=== PATIENT | female | born 1930 | race Hispanic/Latino ===

== ENCOUNTER 2017-03-09 08:07 | Outpatient (RCR) | payer MEDICARE ==
[~2017-03-09 08:07] MED LIST: LIDOCAINE VISC 2% SOLN 15 ML UDC ONE; LIDOCAINE/PRILOCAINE 2.5-2.5% KIT ONE
[2017-03-09] MEDS ORDERED: LIDOCAINE/PRILOCAINE 2.5-2.5% KIT ONE (14:27)
== END 2017-03-13 ==
LOC: WCC 08:07
PROVIDERS: ATTEND Family Medicine Adult Medicine
DX: S81.801A Unspecified open wound, right lower leg, initial encounter (principal); I87.2 Venous insufficiency (chronic) (peripheral); W20.8XXA Other cause of strike by thrown, projected or falling object, initial encounter
CPT/HCPCS: 11042 ×2; G0463 ×2

== ENCOUNTER → 2017-04-13 | Outpatient (RCR) | payer MEDICARE ==
--- NOTE | 2017-03-16 11:13 | Diagnostic Imaging Report ---
PROCEDURE:X-RAY RIGHT LOWER LEG COMPARISON:None. INDICATIONS:RIGHT LOWER LEG WOUND FINDINGS: There are no fractures, dislocations, lytic or blastic lesions. Right total knee arthroplasty is good alignment with no evidence of loosening or infection. Diffuse bony demineralization. Soft tissue swelling in the upper one third of the lower leg, possibly related to stockings compressing the lower two thirds. CONCLUSION: 1. No acute osseous abnormalities. 2. Stable right total knee arthroplasty. 3. Soft tissue swelling upper one third of the lower leg, possibly related to stockings compressing the lower two thirds. Dictated by: Froy Lucio M.D. on 03/16/2017 at 11:21 Electronically approved by: Froy Lucio M.D. on 03/16/2017 at 11:21
[~2017-04-13] MED LIST changes: +COLLAGENASE OINTMENT 30 GM TUBE ONE; +MUPIROCIN 2% OINT 22 GM TUBE ONE
[2017-04-13 11:39] LABS: BASOPHILS % 0.4 % (0.0-1.0); EOSINOPHILS # (AUTO) 0.1 (0.0-0.4); EOSINOPHILS % 1.7 % (0.0-6.0); HEMATOCRIT 35.4 % (34.2-44.1); HEMOGLOBIN 11.6 g/dL (12.0-16.0); LYMPHOCYTES # (AUTO) 1.2 (1.0-3.2); LYMPHOCYTES % 24.8 % (18.0-39.1); MEAN CORPUSCULAR HGB CONC 32.8 g/dL (31-35); MEAN CORPUSCULAR VOLUME 91.5 fL (81-99); MONOCYTES # (AUTO) 0.4 (0.2-0.8); NEUTROPHILS # (AUTO) 3.1 (2.1-6.9); NEUTROPHILS % 64.7 % (38.7-80.0); PLATELET COUNT 260 x10e3/uL (140-360); RED BLOOD COUNT 3.87 x10e6/uL (3.6-5.1); RED CELL DISTRIBUTION WIDTH 12.9 % (11.7-14.4)
[2017-04-13 12:04] LABS: ALANINE AMINOTRANSFERASE 11 IU/L (0-55); ALBUMIN 3.5 g/dL (3.5-5.0); ALBUMIN/GLOBULIN RATIO 0.9 (0.8-2.0); ALKALINE PHOSPHATASE 103 IU/L (40-150); BLOOD UREA NITROGEN 17 mg/dL (7-26); BUN/CREATININE RATIO 27 (6-25); CALCIUM 9.1 mg/dL (8.4-10.2); CARBON DIOXIDE 26 mmol/L (22-29); CHLORIDE 109 mmol/L (98-107); CREATININE, SERUM 0.63 mg/dL (0.57-1.11); EST GLOMERULAR FILTRATION RATE > 60 ML/MIN (60-); GLUCOSE 93 mg/dL (74-118); SODIUM 143 mmol/L (136-145)
== END ==
LOC: WCC 03-16 11:35
PROVIDERS: ATTEND Family Medicine Adult Medicine
DX: S81.801A Unspecified open wound, right lower leg, initial encounter (principal); S80.11XA Contusion of right lower leg, initial encounter; I87.2 Venous insufficiency (chronic) (peripheral); W20.8XXA Other cause of strike by thrown, projected or falling object, initial encounter
CPT/HCPCS: 36415; 80053; 84134; 85025; 87071; 87075; 87186; 87205

== ENCOUNTER → 2017-05-11 | Outpatient (RCR) | payer MEDICARE ==
[~2017-05-11] MED LIST changes: -COLLAGENASE OINTMENT 30 GM TUBE ONE; -MUPIROCIN 2% OINT 22 GM TUBE ONE
== END ==
LOC: WCC 04-20 09:41
PROVIDERS: ATTEND Family Medicine
DX: S81.801A Unspecified open wound, right lower leg, initial encounter (principal); R60.0 Localized edema; I87.2 Venous insufficiency (chronic) (peripheral); B96.29 Other Escherichia coli [E. coli] as the cause of diseases classified elsewhere; W20.8XXA Other cause of strike by thrown, projected or falling object, initial encounter
CPT/HCPCS: 15271 ×2; 87071; 87075; 87205; 99213; Q4117 ×2

== ENCOUNTER 2017-06-08 08:39 | Outpatient (RCR) | payer MEDICARE ==
[~2017-06-08 08:39] MED LIST changes: -LIDOCAINE VISC 2% SOLN 15 ML UDC ONE; +MINERAL OIL/PETROLAT/GLYCERI 6OZ BTL ONE
== END 2017-06-11 ==
LOC: WCC 08:39
PROVIDERS: ATTEND Family Medicine
DX: S81.801A Unspecified open wound, right lower leg, initial encounter (principal); R60.0 Localized edema; I87.2 Venous insufficiency (chronic) (peripheral); W20.8XXA Other cause of strike by thrown, projected or falling object, initial encounter
CPT/HCPCS: 15271 ×2; 99213 ×2; Q4121 ×2

== ENCOUNTER 2017-07-06 09:22 | Outpatient (RCR) | payer MEDICARE ==
[2017-07-06] MEDS ORDERED: LIDOCAINE VISC 2% SOLN 15 ML UDC ONE (17:37)
== END 2017-07-11 ==
LOC: WCC 09:22
PROVIDERS: ATTEND Family Medicine
DX: S81.801A Unspecified open wound, right lower leg, initial encounter (principal); R60.0 Localized edema; I87.2 Venous insufficiency (chronic) (peripheral); W20.8XXA Other cause of strike by thrown, projected or falling object, initial encounter
CPT/HCPCS: 15271 ×2; 29581; 99213 ×2; Q4121 ×2

== ENCOUNTER 2017-08-10 08:35 | Outpatient (RCR) | payer MEDICARE ==
[2017-08-10] MEDS ORDERED: LIDOCAINE/PRILOCAINE 2.5-2.5% KIT ONE (12:13)
== END 2017-08-11 ==
LOC: WCC 08:35
PROVIDERS: ATTEND Family Medicine
DX: S81.801A Unspecified open wound, right lower leg, initial encounter (principal); R60.0 Localized edema; I87.2 Venous insufficiency (chronic) (peripheral); W20.8XXA Other cause of strike by thrown, projected or falling object, initial encounter

== ENCOUNTER 2017-09-07 09:29 | Outpatient (RCR) | payer MEDICARE ==
[~2017-09-07 09:29] MED LIST changes: -MINERAL OIL/PETROLAT/GLYCERI 6OZ BTL ONE
[2017-09-07] MEDS ORDERED: LIDOCAINE/PRILOCAINE 2.5-2.5% KIT ONE (17:03)
== END 2017-09-10 ==
LOC: WCC 09:29
PROVIDERS: ATTEND Family Medicine
DX: S81.801A Unspecified open wound, right lower leg, initial encounter (principal); R60.0 Localized edema; I87.2 Venous insufficiency (chronic) (peripheral); W20.8XXA Other cause of strike by thrown, projected or falling object, initial encounter
CPT/HCPCS: 11042 ×3; 15271; Q4121

== ENCOUNTER 2017-10-05 14:44 | Outpatient (RCR) | payer MEDICARE ==
[2017-10-05] MEDS ORDERED: MINERAL OIL/PETROLAT/GLYCERI 6OZ BTL ONE (18:00)
== END 2017-10-11 ==
LOC: WCC 14:44
PROVIDERS: ATTEND Family Medicine
DX: S81.801A Unspecified open wound, right lower leg, initial encounter (principal); I87.2 Venous insufficiency (chronic) (peripheral); R60.0 Localized edema; W20.8XXA Other cause of strike by thrown, projected or falling object, initial encounter

== ENCOUNTER 2017-10-26 09:20 | Outpatient (RCR) | payer MEDICARE ==
[2017-10-26] MEDS ORDERED: LIDOCAINE/PRILOCAINE 2.5-2.5% KIT ONE (14:54)
== END 2017-11-11 ==
LOC: WCC 09:20
PROVIDERS: ATTEND Family Medicine
DX: S81.801A Unspecified open wound, right lower leg, initial encounter (principal); I87.2 Venous insufficiency (chronic) (peripheral); R60.0 Localized edema; W20.8XXA Other cause of strike by thrown, projected or falling object, initial encounter